=== PATIENT | female | born 1970 | race Caucasian/White ===

== ENCOUNTER 2021-09-11 11:41 | Outpatient (REF) | payer BC, SELFPAY ==
--- NOTE | ~2021-09-11 | XR_ITS ---
EXAMINATION: XR SINUSES CLINICAL INFORMATION: Headaches. Left-sided sinus pressure. COMPARISON: None TECHNIQUE: 4 views of sinuses FINDINGS: Hazy airspace opacity in left maxillary sinus consistent with sinus disease. No air-fluid level evident. The remainder of the paranasal sinuses are normally aerated. No osseous abnormality. XR/XR sinus min 3V IMPRESSION: Hazy airspace opacity in left maxillary sinus consistent with sinus disease.
== END 2021-09-11 11:42 | disposition home or self-care (01) ==
LOC: HO.XRAY 11:41
PROVIDERS: PCP Internal Medicine; Visit Provider Otolaryngology
DX: R51.9 Headache, unspecified (principal)
CPT/HCPCS: 70220

== ENCOUNTER 2023-03-11 15:20 | Outpatient (REF) | payer BC, SELFPAY ==
--- NOTE | ~2023-03-11 | CT_ITS ---
EXAMINATION: CT MAXILLOFACIAL WITHOUT CONTRAST CLINICAL INFORMATION: Deviated nasal septum. COMPARISON: Sinus radiograph from 09/11/2021. TECHNIQUE: Multidetector helical imaging was performed in the axial plane with generation of coronal and sagittal reformatted images. This CT examination was performed using dose optimization techniques as appropriate, variously including the following: *Automated exposure control. *Adjustment of mA and/or kV according to patient size (this includes techniques or standardized protocols for targeted exams where dose is matched to indication/reason for exam; i.e. extremities or head). *Use of iterative reconstruction technique. DLP: 111 mGy-cm FINDINGS: FRONTAL SINUSES AND DRAINAGE PATHWAYS: Minimal mucosal thickening of the frontal sinuses. The frontoethmoidal recesses are patent. MAXILLARY SINUSES AND DRAINAGE PATHWAYS: Mild mucosal thickening of the maxillary sinuses. The maxillary ostia and infundibula are patent. ETHMOID SINUSES: Mild mucosal thickening of the ethmoid air cells. The ethmoid roofs appear symmetric and intact. SPHENOID SINUS AND DRAINAGE PATHWAYS: Minimal mucosal thickening of the sphenoid sinus. The sphenoethmoidal recesses are patent. NASAL PASSAGE: Mild mucosal thickening of the left greater than right nasal passages. Moderate leftward nasal septal deviation. ADDITIONAL RELEVANT FINDINGS: The lamina papyracea are intact. No demonstrated abnormalities of the orbits. The carotid canals are normally covered by bone. No significant maxillary periapical disease. The temporomandibular joints are normal. The mastoid air cells and middle ear cavities remain well aerated. Limited evaluation of the intracranial structures without significant abnormalities. CT/CT sinus wo IV con IMPRESSION: 1. Mild sinonasal mucosal disease. 2. Moderate leftward nasal septal deviation.
== END 2023-03-11 15:21 | disposition home or self-care (01) ==
LOC: HO.CT 15:20
PROVIDERS: PCP Internal Medicine; Visit Provider Otolaryngology
DX: J33.0 Polyp of nasal cavity (principal); J34.2 Deviated nasal septum
CPT/HCPCS: 70486